=== PATIENT | male | born 1975 | race Caucasian/White ===

== ENCOUNTER → 2020-05-02 | Outpatient (CLI) | payer BC ==
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
== END | disposition home or self-care (01) ==
LOC: RADXRMAIN 16:26
PROVIDERS: ATTEND Family Medicine
DX: M25.522 Pain in left elbow (principal)

== ENCOUNTER 2022-01-16 09:34 | Emergency (ER) | payer BC ==
[2022-01-16 09:47] VITALS: BP 135/93; PULSE 83; RESP 18; TEMP 97.8
--- NOTE | 2022-01-16 10:12 | ED ---
Back Pain HPI - General Chief Complaint: Back Pain/Injury Stated Complaint: back pain Time Seen by Provider: 01/16/22 09:50 Source: patient, RN notes reviewed Limitations: no limitations - History of Present Illness Initial Comments: This a 46-year-old male presents emergency Department chief complaint of low back pain. Patient states he's had some on-and-off issues with his back in which she states Dr. Banuelos has a month [place]. Patient states that he started having severe increasing pain yesterday. Patient states that he has pain with any range of motion. Denies any bowel, bladder incontinence or retention or saddle anesthesias no lower shunted paresthesias denies any weakness of his lower extremity he states that it hurts she has performed x-rays in the past. Patient denies any other complaints. - Related Data Previous Rx's Medication Instructions Recorded Cyclobenzaprine [Flexeril] 10 mg PO TID PRN #15 tab 01/16/22 predniSONE 50 mg PO DAILY #5 tab 01/16/22 Allergies Allergy/AdvReac Type Severity Reaction Status Date / Time No Known Allergies Allergy Verified 01/16/22 09:47 Review of Systems ROS Statement: Those systems with pertinent positive or pertinent negative responses have been documented in the HPI. ROS Other: All systems not noted in ROS Statement are negative. Past Medical History Past Medical History: No Reported History Past Surgical History: Orthopedic Surgery Past Psychological History: No Psychological Hx Reported Smoking Status: Never smoker Past Alcohol Use History: None Reported Past Drug Use History: None Reported General Exam Limitations: no limitations General appearance: alert, in no apparent distress Head exam: Present: atraumatic, normocephalic, normal inspection Eye exam: Present: normal appearance, PERRL, EOMI. Absent: scleral icterus, conjunctival injection, periorbital swelling ENT exam: Present: normal exam, mucous membranes moist Neck exam: Present: normal inspection, full ROM. Absent: tenderness, meningismus, lymphadenopathy Respiratory exam: Present: normal lung sounds bilaterally. Absent: respiratory distress, wheezes, rales, rhonchi, stridor Cardiovascular Exam: Present: regular rate, normal rhythm, normal heart sounds. Absent: systolic murmur, diastolic murmur, rubs, gallop, clicks GI/Abdominal exam: Present: soft, normal bowel sounds. Absent: distended, tenderness, guarding, rebound, rigid Extremities exam: Present: other (Lower extremity strength equal bilaterally, neurovascular intact, equal strength equal color equal warmth) Back exam: Present: tenderness, paraspinal tenderness. Absent: full ROM, CVA tenderness (R), CVA tenderness (L), vertebral tenderness Neurological exam: Present: alert, oriented X3, reflexes normal. Absent: motor sensory deficit Skin exam: Present: warm, dry, intact, normal color. Absent: rash Course Vital Signs 01/16/22 09:42 Temperature 97.8 F Pulse Rate 83 Respiratory 18 Rate Blood Pressure 135/93 O2 Sat by Pulse 98 Oximetry Medical Decision Making - Medical Decision Making CT shows evidence of L3-L4 disc bulging, L4-L5 disc herniation. Patient has no red flag symptoms. Patient will be discharged in stable condition with follow- up with Dr. Moser. Disposition Clinical Impression: Bulging of lumbar intervertebral disc, Lumbar disc herniation Disposition: HOME SELF-CARE Condition: Stable Instructions (If sedation given, give patient instructions): Lumbar Disc Herniation (ED) Additional Instructions: Please return to the Emergency Department if symptoms worsen or any other concerns. Prescriptions: Cyclobenzaprine [Flexeril] 10 mg PO TID PRN #15 tab PRN Reason: Muscle Spasm predniSONE 50 mg PO DAILY #5 tab Is patient prescribed a controlled substance at d/c from ED?: No Referrals: Laol Banuelos MD [Primary Care Provider] - 1-2 days Elmer Moser DO [Doctor of Osteopathic Medicine] - 1-2 days Time of Disposition: 10:30
--- NOTE | 2022-01-16 10:25 | CT ---
EXAMINATION TYPE: CT lumbar spine wo con DATE OF EXAM: 01/16/2022 10:15 AM COMPARISON: None HISTORY: chronic back pian CT DLP: 1747.6 mGycm Automated exposure control for dose reduction was used. Unenhanced CT of the lumbar spine was performed. Bone and soft tissue window settings are submitted as well as coronal and sagittal reconstructions. L1-L2: Normal disc space height. No disc herniation protrusion or central stenosis. No facet joint arthropathy. No evidence for foraminal encroachment. L2-L3: Normal disc space height. No disc herniation protrusion or central stenosis. No facet joint arthropathy. No evidence for foraminal encroachment. L3-L4: Mild degenerative disc space narrowing. Left paracentral disc bulge or small protrusion noted. There appears to be mild left lateral recess stenosis. No evidence for central stenosis foramina are patent bilaterally. L4-L5: Mild degenerative disc space narrowing. Posterocentral small disc herniation effaces the ventr al thecal sac. There appears to be bilateral lateral recess stenosis. No evidence for central stenosi s. Foramina are patent. L5-S1: Normal disc space height. Right paracentral disc bulge. Mild effacement ventral thecal sac. No evidence for central stenosis or lateral recess stenosis. Foramina are patent. No evidence for rafa inal encroachment. IMPRESSION: 1. L3-4 left paracentral disc bulge or small protrusion. 2. Posterocentral disc herniation at L4-5 with mild bilateral lateral recess stenosis.
== END 2022-01-16 10:56 | disposition home or self-care (01) ==
LOC: EC 09:34
DX: M51.26 Other intervertebral disc displacement, lumbar region (principal)
CPT/HCPCS: 72131; 99283

== ENCOUNTER 2022-03-19 11:48 | Emergency (ER) | payer BC ==
[2022-03-19 12:00] VITALS: BP 146/101; PULSE 82; RESP 18; TEMP 98.2
[2022-03-19] MEDS ORDERED: HYDROmorphone 0.5 MG/0.5 ML SYRINGE IVP STA (12:50)
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
--- NOTE | 2022-03-19 14:11 | XR ---
EXAMINATION TYPE: XR chest 2V DATE OF EXAM: 03/19/2022 1:28 PM COMPARISON: None TECHNIQUE: XR chest 2V Frontal and lateral views of the chest. CLINICAL INDICATION:Male, 46 years old with history of Difficulty breathing ; FINDINGS: Lungs/Pleura: There is no evidence of pleural effusion, focal consolidation, or pneumothorax. Pulmonary vascularity: Unremarkable. Heart/mediastinum: Cardiomediastinal silhouette is unremarkable. Musculoskeletal: No acute osseous pathology. IMPRESSION: No acute cardiopulmonary disease/process.
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
[2022-03-19] MEDS ORDERED: ACET/COD 300 MG/30 MG STARTER PACK 6 TAB BTL PO STA (15:13)
== END 2022-03-19 15:24 | disposition home or self-care (01) ==
LOC: EC 11:48
DX: S30.0XXA Contusion of lower back and pelvis, initial encounter (principal); R07.89 Other chest pain; V86.56XA Driver of dirt bike or motor/cross bike injured in nontraffic accident, initial encounter
CPT/HCPCS: 71046; 72131; 99285; 96374; J1170